=== PATIENT | female | born 1955 | race Caucasian/White ===

== ENCOUNTER 2024-12-05 10:54 | Observation (INO) ==
--- NOTE | 2024-12-05 11:37 | ED.PDOC ---
General ED Provider: Dr. SAKINA PORTER DO Chief Complaint: Abnormal Labs Stated Complaint: Urinary tract infection. Patient 69-year-old female recently admitted to [facility] in long-term care admitted date of 11/22/2024. Patient states at this time she was given a Robles catheter. She has had increasing dysuria and discomfort with her Robles catheter. She reports being found to have a urinary tract infection yesterday and started on antibiotics. She also had blood work which noted hypokalemia. She continued to feel poorly and therefore was sent to the emergency department. Patient was treated with ampicillin. She denies fevers no recent acetaminophen dosage. Patient is morbidly obese. She is extremely tearful related to her situation and hoping for rehab placement. Time Seen by Provider: 12/05/24 11:18 Information Source: Patient, Halfway and EMT Primary Care Provider: JUAN JOSÉ WOLFF MD Nursing and Triage Documentation Reviewed and Agree: Yes What is Opioid Naive?: *Opioid Naive implies the patient is not already taking opioids or not chronically receiving opioids on a daily basis. *PRN dosing is not "usually" associated with tolerance. *Patients are at higher risk of over-sedation and aspiration. What is Opioid Tolerant?: *Opioid Tolerance implies less than the expected response to an opioid. *Acquired tolerance is defined by the patient taking 60mg of oral morphine daily (or equianalgesic dose of another opioid) for 1 week or more. *Often associated with chronic pain. *May take more than usual dose to achieve desired pain control. 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 - Other postherpetic nervous system involvement (ICD-10) Family History Grandfather/Grandmother Tuberculosis Breast cancer, left Diabetes Social History Smoking and tobacco status: Never smoker Second hand smoke exposure: No Smoking risk assessment performed: No Alcohol intake: never Substance use type: does not use Maria Esther/jehovah's witness: [employer] [employer] [place] Special maria esther needs: No Agree to transfusion: Yes Adopted: No Caregiver/support person: No Foster care: No Household members: spouse and children Housing: house Marital status: M Lives independently: Yes Daycare: no daycare Number of children: 2 service: No penitentiary: No Current occupational status: employed History of recent travel: No Sexually active: No Current gender identity: female Seatbelt use: always Helmet use: No Drives intoxicated or rides with intoxicated long haul truck driver: No Water heater temperature set < 120 degrees: Yes Working smoke detector in home: Yes Fire extinguisher in home: Yes Carbon monoxide detector in home: Yes Surgical History History of cholecystectomy Z90.49 - Acquired absence of other specified parts of digestive tract (ICD- 10) History of section Z98.891 - History of uterine scar from previous surgery (ICD-10) History of breast biopsy several breast biopsies Z98.890 - Other specified postprocedural states (ICD-10) Female Reproductive History Menstrual Hx Hysterectomy: No Hx Tubal Ligation: No Date of menopause: 07/18/09 Physical Exam Physical Exam Appearance: Reports Obese Respiratory: Reports Airway patent and Breath sounds clear Cardiovascular: Reports RRR GI/: Reports Other (Robles catheter with large sediment); Denies Tender Musculoskeletal: Reports Limited strength Skin: Reports Warm and Dry Neurological: Reports Sensation intact, Motor intact and Alert Course Course 12/05/24 11:50 12/05/24 11:50 Orders, Labs, Meds: Lab Review 12/05/24 12/05/24 12/05/24 11:50 13:38 15:35 WBC 11.11 H RBC 3.93 L Hgb 11.7 L Hct 37.4 MCV 95.2 MCH 29.8 MCHC 31.3 L RDW Coeff of Marco 16.4 H Plt Count 352 Immature Gran % (Auto) 2.0 Neut % (Auto) 58.2 Lymph % (Auto) 22.7 [place] % (Auto) 8.4 Eos % (Auto) 7.8 H Baso % (Auto) 0.9 Neut # (Auto) 6.5 Lymph # (Auto) 2.5 [place] # (Auto) 0.9 Eos # (Auto) 0.9 H Baso # (Auto) 0.1 Immature Gran # (Auto) 0.2 Sodium 137.3 Potassium 2.84 L Chloride 95.5 L Carbon Dioxide 29.8 Anion Gap 14.84 BUN 20.2 H Creatinine 0.90 Estimated GFR (MDRD) 62.00 BUN/Creatinine Ratio 22.44 Glucose 131.4 H Lactic Acid 1.10 Calcium 8.62 Magnesium 1.82 Total Bilirubin 0.70 AST 29.0 ALT 17.5 Alkaline Phosphatase 161.0 H Total Protein 6.29 L Albumin 3.20 L Globulin 3.09 Albumin/Globulin Ratio 1.03 Procalcitonin 0.09 Urine Color Yellow Urine Clarity Slightly Urine pH 6.0 Ur Specific [place] >=1.030 Urine Protein 3+ H Urine Glucose (UA) Negative Urine Ketones Trace H Urine Blood 3+ H Urine Nitrite Positive H Urine Bilirubin 1+ H Urine Urobilinogen 0.2 Ur Leukocyte Esterase 1+ H Urine Microscopic RBC 20-30 Urine Microscopic WBC 5-10 Ur Squamous Epith Cells Not present Triple Phos Crystals 1+ Urine Bacteria 1+ Hyaline Casts 0-2 SARS CoV-2 RNA Rapid CHRISTY Negative Orders Category Date Time Status ADMIT OBSERVATION [PLACE PATIENT OBSERVATION] .TO ADMISSION 12/05/24 16:06 Active MEDSURG (MONITORED BED) TELEMETRY MONITORING TELE CARE 12/05/24 16:06 Active ED IV/MEDIPORT/POWERPORT .ONCE EMERGENCY 12/05/24 11:38 Active CBC W/ AUTO DIFF Stat LAB 12/05/24 11:50 Completed COMPREHENSIVE METABOLIC PANEL Stat LAB 12/05/24 11:50 Completed LACTIC ACID Stat LAB 12/05/24 11:50 Completed MAGNESIUM Stat LAB 12/05/24 11:50 Completed PROCALCITONIN Stat LAB 12/05/24 11:50 Completed SARS COV-2 RNA RAPID CHRISTY Stat LAB 12/05/24 15:35 Completed URINALYSIS C & S IF INDICATED Stat LAB 12/05/24 13:38 Completed URINE CULTURE Stat LAB 12/05/24 13:38 Received 0.9 % Sodium Chloride [Saline Flush] Meds 12/05/24 11:38 Active 1 syr IVF PRN PRN Potassium Chloride [Potassium Chloride 10 Meq/100 ml Meds 12/05/24 14:52 Discontinued Premix] 10 meq in 100 ml IV ONCE Sodium Chloride 0.9% [Sodium Chloride] 1,000 ml Meds 12/05/24 15:37 Active IV 100 mls/hr Medications Generic Name Dose Route Start Last Admin Trade Name Elias PRN Reason Stop Dose Admin Acetaminophen 650 mg 12/05/24 16:40 Acetaminophen 325 Mg Tablet PO Q4H PRN Mild Pain Hydrocodone Bitart/Acetaminophen 1 tab 12/05/24 21:00 Hydrocodone Bit/Acetaminophen 5/325 Mg Tablet PO BID PRN MODERATE PAIN Hydrocodone Bitart/Acetaminophen 1 tab 12/05/24 21:00 12/05/24 21:26 Hydrocodone Bit/Acetaminophen 5/325 Mg Tablet PO 1 tab BEDTIME MEÑO Administration Albuterol Sulfate 2 puff 12/05/24 20:20 Albuterol Sulfate 8 Gm Inhaler IH Q4-6H PRN Wheezing Budesonide/Formoterol Fumarate 2 puff 12/05/24 21:00 12/05/24 21:31 Budesonide/Formoterol Fumarate 160/4.5 Mcg Inhaler IH 2 puff BID MEÑO Administration Clonazepam 1 mg 12/06/24 09:00 Clonazepam 0.5 Mg Tablet PO QAM MEÑO Clonazepam 2 mg 12/05/24 21:00 12/05/24 21:34 Clonazepam 0.5 Mg Tablet PO 2 mg BEDTIME MEÑO Administration Collagenase 1 applic 12/05/24 20:30 12/05/24 21:33 Collagenase Clostridium Hist 30 Gm Oint TP 1 applic 1-2XD MEÑO Administration Furosemide 20 mg 12/06/24 06:30 Furosemide 20 Mg Tablet PO 0630,1700 MEÑO Sodium Chloride 1,000 mls @ 100 mls/hr 12/05/24 15:37 12/05/24 15:47 Sodium Chloride IV 12/06/24 01:36 100 mls/hr .Q10H ONE Administration Ampicillin Sodium 2 gm/ Sodium 100 mls @ 100 mls/hr 12/05/24 18:00 12/05/24 20:10 Chloride IV 12/08/24 17:59 100 mls/hr Q6HR MEÑO Administration Insulin Glargine 10 unit 12/05/24 21:00 12/05/24 21:56 Insulin Glargine,Hum.Rec.Anlog 100 Units/Ml SUBCUT Not Given BID MEÑO Levothyroxine Sodium 200 mcg 12/06/24 06:30 Levothyroxine Sodium 100 Mcg Tablet PO 0630 [facility] Levothyroxine Sodium 50 mcg 12/06/24 06:30 Levothyroxine Sodium 50 Mcg Tablet PO 0630 [facility] Miconazole Nitrate 1 applic 12/05/24 21:00 12/05/24 21:32 Miconazole Nitrate 28 Gm Cream TP 1 applic BID MEÑO Administration Multivitamins 1 tab 12/06/24 09:00 Multivitamin 1 Tab PO DAILY [facility] Non-Formulary Medication 100 mg 12/06/24 17:00 Fluvoxamine [Luvox Cr] PO QPM [facility] Non-Formulary Medication 150 mg 12/06/24 09:00 Fluvoxamine PO DAILY [facility] Ondansetron HCl 4 mg 12/05/24 20:20 Ondansetron Hcl 4 Mg Tab.Rapdis PO Q8H PRN Nausea / Vomiting Pantoprazole Sodium 40 mg 12/06/24 09:00 Pantoprazole Sodium 40 Mg Tablet.Dr PO DAILY [facility] Potassium Chloride 20 meq 12/06/24 07:30 Potassium Chloride 20 Meq Tab PO BIDWM2 [facility] Promethazine HCl 25 mg 12/05/24 20:20 12/05/24 21:34 Promethazine Hcl 25 Mg Tablet PO 25 mg TID PRN Administration Nausea / Vomiting Saccharomyces Boulardii 250 mg 12/05/24 21:00 12/05/24 21:34 Saccharomyces Boulardii 250 Mg Capsule PO 250 mg BID MEÑO Administration Sodium Chloride 1 syr 12/05/24 11:38 0.9% Sodium Chloride 10 Ml Disp.Syrin IVF PRN PRN To flush IV Sucralfate 1 gm 12/05/24 21:00 12/05/24 21:33 Sucralfate Susp 1 Gm/10 Ml Cup PO 1 gm ACHS2 [facility] Administration Tiotropium [place] 1 cap 12/06/24 09:00 Tiotropium [place] 18 Mcg Cap.W.Dev IH DAILY [facility] Tizanidine HCl 4 mg 12/05/24 20:20 12/05/24 21:33 Tizanidine Hcl 4 Mg Tablet PO 4 mg Q8H PRN Administration Spasms Discontinued Medications Generic Name Dose Route Start Last Admin Trade Name Freq PRN Reason Stop Dose Admin Potassium Chloride 10 meq in 100 mls @ 100 mls/hr 12/05/24 14:52 12/05/24 15:47 Potassium Chloride 10 Meq/100 Ml Premix IV 12/05/24 15:51 100 mls/hr ONCE ONE Administration Potassium Chloride 20 meq in 100 mls @ 50 mls/hr 12/05/24 16:36 12/05/24 20:23 Potassium Chloride 20 Meq/100 Ml Premix IV 12/05/24 18:35 Not Given ONCE ONE Potassium Chloride 20 meq in 100 mls @ 50 mls/hr 12/05/24 21:00 12/05/24 21:41 Potassium Chloride 20 Meq/100 Ml Premix IV 12/05/24 22:59 50 mls/hr ONCE ONE Administration Non-Formulary Medication 100 mg 12/05/24 21:00 12/05/24 21:27 Fluvoxamine [Luvox Cr] PO Not Given TID MEÑO Non-Formulary Medication 100 mg 12/05/24 21:24 Fluvoxamine [Luvox Cr] PO TID MEÑO Vital Signs: Temp Pulse Resp BP Pulse Ox 12/05/24 11:00 98.0 F 104 H 20 144/88 H 95 Discharge Plan Discharge Patient Disposition: PLACED OBSERVATION Discharge Problem: Acute hypokalemia, Bacterial UTI Did you review [place] [employer] for ALL controlled substances?: Not Applicable ED Provider: SAKINA PORTER Condition: Fair Physician Progress Note: Concern for systemic infection, complicated UTI, bacteremia, sepsis. Overall patient is well-appearing do not suspect systemic infection. Is currently being treated for complicated UTI. Patient 69-year-old female seen and evaluated in emergency department. Patient overall very tearful and concerned about her current living situation. She feels she has been less ambulatory since going to [facility]. Robles catheter was originally placed upon her arrival on 11 22. On evaluation there is large amounts of sediment and being treated for a UTI. Robles catheter was replaced in the emergency department. Patient does have hypokalemia which has been improving per lab evaluation today. She has been on oral supplementation however due to her recent nausea and discomfort concerned that she will no longer be able to continue with oral medication. She was given IV potassium in the emergency department. Urine analysis does show evidence of infection. Will continue antibiotic treatment spoke with hospitalist service agreement for observation for hypokalemia and continued management of urinary infection.
[2024-12-05 11:53] LABS: BASOPHILS # (AUTO) 0.1 K/uL (0-0.2); BASOPHILS % (AUTO) 0.9 % (0.0-3.0); EOSINOPHILS # (AUTO) 0.9 K/ul (0.0-0.7); EOSINOPHILS % (AUTO) 7.8 % (0.0-7.0); HEMATOCRIT 37.4 % (37.0-47.0); HEMOGLOBIN 11.7 g/dl (12.0-16.0); IMMATURE GRANULOCYTE # (AUTO) 0.2 (0.0-1.0); LYMPHOCYTES # (AUTO) 2.5 K/uL (0.60-3.4); LYMPHOCYTES % (AUTO) 22.7 (10.0-50.0); MEAN CORPUSCULAR HEMOGLOBIN 29.8 pg (27.0-31.0); MEAN CORPUSCULAR HGB CONC 31.3 (31.8-35.4); MEAN CORPUSCULAR VOLUME 95.2 fl (81.0-99.0); MONOCYTES # (AUTO) 0.9 K/uL (0.4-2.0); MONOCYTES % (AUTO) 8.4 (0-10); NEUTROPHILS # (AUTO) 6.5 K/ul (2.0-6.9); NEUTROPHILS % (AUTO) 58.2 % (42.2-75.2); PLATELET COUNT 352 10^3/uL (140-440); RDW COEFFICIENT OF VARIATION 16.4 % (11.6-14.8); RED BLOOD COUNT 3.93 10^6/ul (4.20-5.40); WHITE BLOOD COUNT 11.11 K/ul (4.6-10.2)
[2024-12-05 12:07] LABS: ALANINE AMINOTRANSFERASE 17.5 U/L (0-35); ALBUMIN 3.2 g/dL (3.5-5.0); BILIRUBIN,TOTAL 0.7 mg/dL (0.2-1.3); BLOOD UREA NITROGEN 20.2 mg/dL (7-17); CALCIUM 8.62 mg/dL (8.4-10.2); CARBON DIOXIDE 29.8 mmol/L (22-30.0); CHLORIDE 95.5 mmol/L (98-107); CREATININE 0.9 mg/dL (0.60-1.30); GLUCOSE 131.4 mg/dL (74-106); MAGNESIUM 1.82 mg/dL (1.6-2.3); POTASSIUM 2.84 mmol/L (3.5-5.1); SODIUM 137.3 mmol/L (134.5-145); TOTAL PROTEIN 6.29 g/dL (6.3-8.2)
[2024-12-05 13:47] LABS: BILIRUBIN,URINE 1+ (NEGATIVE); CLARITY,URINE Slightly (CLEAR); COLOR,URINE Yellow (YELLOW); GLUCOSE, URINE (UA) Negative (NEGATIVE); KETONES,URINE Trace (NEGATIVE); LEUKOCYTE ESTERASE ,URINE 1+ (NEGATIVE); NITRITE,URINE Positive (NEGATIVE); PROTEIN,URINE 3+ (NEGATIVE); URINE, BLOOD 3+ (NEGATIVE); UROBILINOGEN,URINE 0.2 (0.2)
[2024-12-05 13:49] LABS: SQUAMOUS EPITHELIAL CELL,UR NOT PRESENT (0-5)
[2024-12-05 13:53] LABS: BACTERIA,URINE 1+ (NOT PRESENT); HYALINE CASTS, URINE 0-2 (NOT PRESENT); TRIPLE PHOSPHATE CRYSTAL,UR 1+ (NOT PRESENT); URINE RBC, MICROSCOPIC 20-30 (0-2)
[2024-12-05] MEDS: SODIUM CHLORIDE 1,000 ML IV ONE (15:47)
[2024-12-05] MEDS: POTASSIUM CHLORIDE 10 MEQ/100 ML PREMIX 10 MEQ/100 ML BAG IV ONE (15:47)
[2024-12-05 15:49] LABS: SARS COV-2 RNA RAPID NAAT NEGATIVE (NEGATIVE)
--- NOTE | 2024-12-05 17:10 | PCM ---
Date of Service Date Seen by Provider: 12/05/24 Time Seen by Provider: 17:00 Admit Day/Time Admission Date: 12/05/24 Admission Time: 15:30 Reason for Admission Chief Complaint: UTI, [facility] Provider Hospital Provider: ZOFIA DEVLIN, [facility] Primary Care Physician Primary Care Physician: JUAN JOSÉ RAMOS MD History of Present Illness History of Present Illness: 69-year-old female with past medical history of C. difficile, chronic vomiting and diarrhea, chronic hypokalemia, chronic UTIs, diabetes type 2, and hypertension presented to the ER for low potassium. Basic lab work was completed at local SNF and showed potassium of 2.5. Patient does not have any EKG changes or symptoms. Urinalysis was also collected and showed UTI. Final culture report showed enterococcus. She has been receiving ampicillin at [facility] where she is residing at this time. Patient was recently at [facility] for metabolic encephalopathy due to medications. She was monitored for cellulitis to the right thigh but was not treated with antibiotics. Culture at [facility] showed Pseudomonas. Patient has not been treated with antibiotics since then. Reports that wound now has green- tinged drainage. Has follow-up with Dr. Agustin in the near future. ER provider repeated labs and potassium was found to be 2.8. Given patient's history of repeated potassium replacement admitted to [facility] observation for hypokalemia. Patient had also complained of discomfort of urinary catheter and this was changed in the ER. Case Discussed With Case Discussed With: Patient's case was discussed with the ER Physicians, Dr. Arevalo. 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 - Other postherpetic nervous system involvement (ICD-10) Surgical History History of cholecystectomy Z90.49 - Acquired absence of other specified parts of digestive tract (ICD- 10) History of section Z98.891 - History of uterine scar from previous surgery (ICD-10) History of breast biopsy several breast biopsies Z98.890 - Other specified postprocedural states (ICD-10) Family History Grandfather/Grandmother Tuberculosis Breast cancer, left Diabetes Social History Smoking and tobacco status: Never smoker Second hand smoke exposure: No Smoking risk assessment performed: No Alcohol intake: never Substance use type: does not use Maria Esther/sikhism: [employer] Special maria esther needs: No Agree to transfusion: Yes Adopted: No Caregiver/support person: No Foster care: No Household members: spouse and children Housing: house Marital status: M Lives independently: Yes Daycare: no daycare Number of children: 2 service: No FPC: No Current occupational status: employed History of recent travel: No Sexually active: No Current gender identity: female Seatbelt use: always Helmet use: No 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 Water heater temperature set < 120 degrees: Yes Working smoke detector in home: Yes Fire extinguisher in home: Yes Carbon monoxide detector in home: Yes Allergies Allergies Allergy/AdvReac Type Severity Reaction Status Date / Time prochlorperazine edisylate Allergy Severe , Verified 12/05/24 12:01 (From KAYAKazine) nightmares prochlorperazine maleate Allergy Severe , Verified 12/05/24 12:01 (From KAYAKazine) nightmares codeine Allergy Mild sick to Verified 12/05/24 12:01 stomach phentermine AdvReac Severe headache Verified 12/05/24 12:01 metformin AdvReac Unknown Diarrhea Verified 12/05/24 12:01 moxifloxacin (From Avelox) AdvReac Unknown Vomiting Verified 12/05/24 12:01 rosuvastatin (From Crestor) AdvReac Unknown muscle Verified 12/05/24 12:01 aches aspartame AdvReac Verified 12/05/24 12:01 nitrofurantoin (From AdvReac Verified 12/05/24 12:01 Macrobid) phenylalanine AdvReac Verified 12/05/24 12:01 Current Medications Home Medications Acetaminophen (Acetaminophen 325 Mg Tablet) 650 mg PO Q4H PRN PRN Reason: Mild Pain Sodium Chloride (Sodium Chloride) 1,000 mls @ 100 mls/hr IV .Q10H ONE Stop: 12/06/24 01:36 Last Admin: 12/05/24 15:47 Dose: 100 mls/hr Potassium Chloride (Potassium Chloride 20 Meq/100 Ml Premix) 20 meq in 100 mls @ 50 mls/hr IV ONCE ONE Stop: 12/05/24 18:35 Potassium Chloride (Potassium Chloride 20 Meq/100 Ml Premix) 20 meq in 100 mls @ 50 mls/hr IV ONCE ONE Stop: 12/05/24 22:59 Ampicillin Sodium 2 gm/ Sodium (Chloride) 100 mls @ 100 mls/hr IV Q6HR MEÑO Stop: 12/08/24 17:59 Sodium Chloride (0.9% Sodium Chloride 10 Ml Disp.Syrin) 1 syr IVF PRN PRN PRN Reason: To flush IV accu-check test strips 09/06/22 [History Confirmed 12/05/24] chlordiazepoxide-clidinium 5 mg-2.5 mg capsule (Librax (with clidinium)) 1 cap PO ONCE PRN anxiety 09/06/22 [History Confirmed 12/05/24] fluvoxamine 100 mg capsule,extended release 24 hr (Luvox CR) 100 mg PO TID 09/06/22 [History Confirmed 12/05/24] levothyroxine 200 mcg tablet (Synthroid) 200 mcg PO QDAY #30 tabs 06/13/23 [Rx Confirmed 12/05/24] pen needle, diabetic 32 gauge x 5/32" (Pentips Pen Needle) #100 blisters 01/02/24 [Rx Confirmed 12/05/24] albuterol sulfate 90 mcg/actuation aerosol inhaler 2 inh inhalation Q4-6H PRN shortness of breath or wheezing #8.5 grams 01/12/24 [Rx Confirmed 12/05/24] budesonide 160 mcg-glycopyr 9 mcg-formot 4.8 mcg/actuation HFA inhaler (Breztri Aerosphere) 2 inh inhalation BID #10.7 grams 01/12/24 [Rx Confirmed 12/05/24] levothyroxine 50 mcg tablet (Synthroid) 50 mcg PO QDAY #30 tabs 01/12/24 [Rx Confirmed 12/05/24] blood sugar diagnostic (Accu-Chek Guide test strips) #100 strips 01/07/25 [Rx Confirmed 12/05/24] olmesartan 40 mg tablet 40 mg PO DAILY #90 tabs 07/25/24 [Rx Confirmed 12/05/24] nebivolol 10 mg tablet 5 mg PO BID 09/21/24 [History Confirmed 12/05/24] aripiprazole 2 mg tablet (Abilify) 2 mg PO DAILY #30 tabs 10/03/24 [Rx Confirmed 12/05/24] promethazine 25 mg tablet 25 mg PO TID PRN nausea and vomiting #30 tabs 10/15/24 [Rx Confirmed 12/05/24] needle (disp) 22 G 22 gauge x 1 1/" #2 ea 10/17/24 [Rx Confirmed 12/05/24] syringe (disposable) 3 mL #2 ea 10/17/24 [Rx Confirmed 12/05/24] ondansetron 4 mg disintegrating tablet 4 mg PO Q8H PRN nausea and vomiting #30 tabs 10/24/24 [Rx Confirmed 12/05/24] clonazepam 0.5 mg tablet 1 mg (2 x 0.5 mg) PO QAM #30 tabs 11/06/24 [Rx Confirmed 12/05/24] clonazepam 0.5 mg tablet 2 mg (4 x 0.5 mg) PO BEDTIME #30 tabs 11/06/24 [Rx Confirmed 12/05/24] sucralfate 100 mg/mL oral suspension 1 g (10 mL) PO ACHS2 #500 mL 11/06/24 [Rx Confirmed 12/05/24] tizanidine 4 mg tablet (Zanaflex) 4 mg PO Q8H PRN muscle spasticity #30 tabs 12/03/24 [Rx Confirmed 12/05/24] acetaminophen 325 mg capsule 650 mg PO Q4H PRN pain 12/05/24 [History Confirmed 12/05/24] ampicillin 500 mg capsule 1 g PO DAILY 12/05/24 [History Confirmed 12/05/24] collagenase clostridium histo. 250 unit/gram topical ointment (Santyl) 1 applic topical 1-2XD 12/05/24 [History Confirmed 12/05/24] diclofenac sodium 1 % topical gel 2 g topical TID PRN pain 12/05/24 [History Confirmed 12/05/24] furosemide 20 mg tablet 20 mg PO BID 12/05/24 [History Confirmed 12/05/24] hydrocodone 5 mg-acetaminophen 325 mg tablet 1 tab PO TID 12/05/24 [History Confirmed 12/05/24] insulin glargine 100 unit/mL subcutaneous solution 10 unit subcut BID 12/05/24 [History Confirmed 12/05/24] lidocaine 4 % topical patch (Lidocare) 2 patch topical DAILY 12/05/24 [History Confirmed 12/05/24] miconazole nitrate 2 % topical powder (Antifungal (miconazole)) 1 applic topical BID 12/05/24 [History Confirmed 12/05/24] multivitamin (Daily Multi-Vitamin tablet) 1 tab PO DAILY 12/05/24 [History Confirmed 12/05/24] pantoprazole 40 mg tablet,delayed release 40 mg PO DAILY 12/05/24 [History Confirmed 12/05/24] Opioid Naive vs. Tolerant Does Patient Take Opioids?: Yes Is Patient Opioid Naive?: No What is Opioid Naive?: *Opioid Naive implies the patient is not already taking opioids or not chronically receiving opioids on a daily basis. *PRN dosing is not "usually" associated with tolerance. *Patients are at higher risk of over-sedation and aspiration. Is Patient Opioid Tolerant?: No What is Opioid Tolerant?: *Opioid Tolerance implies less than the expected response to an opioid. *Acquired tolerance is defined by the patient taking 60mg of oral morphine daily (or equianalgesic dose of another opioid) for 1 week or more. *Often associated with chronic pain. *May take more than usual dose to achieve desired pain control. Review of Systems Constitutional: Reports No symptoms Head: Reports Normocephalic Eyes: Reports No symptoms Ears: Reports No symptoms Nose: Reports No symptoms Mouth: Reports No symptoms Throat: Reports No symptoms Cardiovascular: Reports No symptoms Respiratory: Reports No symptoms Gastrointestinal: Reports Nausea Genitourinary: Reports Dysuria Musculoskeletal: Reports No symptoms Endocrine: Reports No symptoms Hematology: Reports No symptoms Immunology: Reports No symptoms Neurological: Reports No symptoms Psychiatric: Reports No symptoms Physical examination Most Recent Vital Signs: Most Recent Vital Signs Temperature 98.0 F 12/05/24 11:00 Temperature Source Oral 12/05/24 11:00 Pulse Rate 104 H 12/05/24 11:00 Respiratory Rate 20 12/05/24 11:00 Blood Pressure 144/88 H 12/05/24 11:00 O2 Sat by Pulse Oximetry 95 12/05/24 11:00 Height 5 ft 8 in 12/05/24 11:00 Weight 158.9 kg 12/05/24 11:00 Telemetry Heart Rate 74 11/06/24 07:00 Appearance: Positive No Apparent Distress, Alert and Oriented x3 and Obese Skin: Positive Warm, Good Turgor and Other (approx 1 cm erythematous area to R thigh with purulent drainage) HEENT: Positive Normocephalic and PERRLA Neck: Positive Supple and Midline Trachea Chest/Lungs: Positive Symmetrical With Equal Breath Sounds, Clear to Auscultation Bilaterally and Good Air Movement all 4 Lung Goncalves; Negative Rales, Rhonci or Wheezes Heart: Positive RRR and Pulses Normal; Negative Irregular Rhythm, Tachycardia or Bracycardia GI/: Positive Soft, Nontender, Bowel Sounds Normal, No Distention and No Organomegaly Musculoskeletal: Positive Not Examined Extremities: Positive Edema (chronic nonpitting), Intact Peripheral Pulses, Stable Joints Without Laxity and Good ROM in All Joints Neurological: Positive Sensation Intact, Motor intact, Reflexes Intact, Alert and Oriented Labs This Visit Labs This Visit: Labs This Visit 12/05/24 12/05/24 12/05/24 11:50 13:38 15:35 WBC 11.11 H RBC 3.93 L Hgb 11.7 L Hct 37.4 MCV 95.2 MCH 29.8 MCHC 31.3 L RDW Coeff of Marco 16.4 H Plt Count 352 Immature Gran % (Auto) 2.0 Neut % (Auto) 58.2 Lymph % (Auto) 22.7 [place] % (Auto) 8.4 Eos % (Auto) 7.8 H Baso % (Auto) 0.9 Neut # (Auto) 6.5 Lymph # (Auto) 2.5 [place] # (Auto) 0.9 Eos # (Auto) 0.9 H Baso # (Auto) 0.1 Immature Gran # (Auto) 0.2 Sodium 137.3 Potassium 2.84 L Chloride 95.5 L Carbon Dioxide 29.8 Anion Gap 14.84 BUN 20.2 H Creatinine 0.90 Estimated GFR (MDRD) 62.00 BUN/Creatinine Ratio 22.44 Glucose 131.4 H Lactic Acid 1.10 Calcium 8.62 Magnesium 1.82 Total Bilirubin 0.70 AST 29.0 ALT 17.5 Alkaline Phosphatase 161.0 H Total Protein 6.29 L Albumin 3.20 L Globulin 3.09 Albumin/Globulin Ratio 1.03 Procalcitonin 0.09 Urine Color Yellow Urine Clarity Slightly Urine pH 6.0 Ur Specific Ida >=1.030 Urine Protein 3+ H Urine Glucose (UA) Negative Urine Ketones Trace H Urine Blood 3+ H Urine Nitrite Positive H Urine Bilirubin 1+ H Urine Urobilinogen 0.2 Ur Leukocyte Esterase 1+ H Urine Microscopic RBC 20-30 Urine Microscopic WBC 5-10 Ur Squamous Epith Cells Not present Triple Phos Crystals 1+ Urine Bacteria 1+ Hyaline Casts 0-2 SARS CoV-2 RNA Rapid CHRISTY Negative Review Statement Review Statement: I have independently reviewed and interpreted the labs/EKGs/imaging that were ordered by the ER provider. I have reviewed all outside records that are available currently in our EMR including imaging/notes/labs from previous visits. Plan Plan: 1. Acute on Chronic Hypokalemia - replacement ordered, telemetry, repeat bmp after completion of replacement IV 2. Purulent wound to R thigh - wound culture ordered, no fever or white count at this time 3. UTI d/t enterococcus - continue ampicillin 4. Hypertension - chronic, continue home medications 5. DM2 - chronic, accuchecks qid with ssi, continue home medications DVT Prophylaxis: Chronically bed bound Time Spent: Greater than 80 minutes spent with patient, 50% of the time spent with this patient was devoted to counseling and coordination of care. [facility]annin minutes spent discussing advance care planning. Disposition: Admit to: Med/Surg Observation Discussed Plan of Care with Dr. Allison Ramos. Patient immediately requesting swingbed as soon as provider enters room. Discussed that patient is at baseline level of function and at this time it is going to take longer than the swingbed program allows for patient to return to safe level of function to return home. Daughter and Sister at bedside also in agreement and telling patient that returning to [facility] is the only option for her at this time due to their inability to care for her at home any longer. Medications Medication Orders: Medications Ordered Category Date Time Status 0.9 % Sodium Chloride [Saline Flush] Meds 12/05/24 11:38 Active 1 syr IVF PRN PRN Acetaminophen [Tylenol] Meds 12/05/24 16:40 Active 650 mg PO Q4H PRN Ampicillin Sodium 2 gm Meds 12/05/24 18:00 Active 0.9 % Sodium Chloride [Sodium Chloride 100Ml] 100 ml IV Q6HR Potassium Chloride [Potassium Chloride 20 Meq/100 ml Meds 12/05/24 16:36 Active Premix] 20 meq in 100 ml IV ONCE Potassium Chloride [Potassium Chloride 20 Meq/100 ml Meds 12/05/24 21:00 Active Premix] 20 meq in 100 ml IV ONCE Sodium Chloride 0.9% [Sodium Chloride] 1,000 ml Meds 12/05/24 15:37 Active IV 100 mls/hr
[2024-12-05 17:23] VITALS: BMI 51.9
[2024-12-05] MEDS: SODIUM CHLORIDE IV SCH (20:10)
[2024-12-05] MEDS: AMPICILLIN SODIUM IV SCH (20:10)
[2024-12-05] MEDS ORDERED: VENTOLIN HFA IH PRN (20:20)
[2024-12-05] MEDS: POTASSIUM CHLORIDE 20 MEQ/100 ML PREMIX 20 MEQ/100 ML BAG IV ONE ×2 (20:23→21:41)
[2024-12-05] MEDS ORDERED: FLUVOXAMINE 100 MG PO SCH (21:24)
[2024-12-05] MEDS: NORCO 5-325 PO SCH (21:26)
[2024-12-05] MEDS: FLUVOXAMINE 100 MG PO SCH (21:27)
[2024-12-05] MEDS: SYMBICORT 160-4.5 MCG INHALER IH SCH (21:31)
[2024-12-05] MEDS: MICATIN TP SCH (21:32)
[2024-12-05] MEDS: CARAFATE PO SCH (21:33)
[2024-12-05] MEDS: SANTYL TP SCH (21:33)
[2024-12-05] MEDS: ZANAFLEX PO PRN (21:33)
[2024-12-05] MEDS: KLONOPIN PO SCH (21:34)
[2024-12-05] MEDS: PHENERGAN TAB PO PRN (21:34)
[2024-12-05] MEDS: FLORASTOR PO SCH (21:34)
[2024-12-05] MEDS: LANTUS SUBCUT SCH (21:56)
[2024-12-06] MEDS: NON-FORMULARY MEDICATION (Fluvoxamine 100 MG) PO SCH (01:28)
[2024-12-06 05:30] LABS: BASOPHILS # (AUTO) 0.1 K/uL (0-0.2); BASOPHILS % (AUTO) 0.9 % (0.0-3.0); EOSINOPHILS # (AUTO) 0.7 K/ul (0.0-0.7); EOSINOPHILS % (AUTO) 6.9 % (0.0-7.0); HEMATOCRIT 33.2 % (37.0-47.0); HEMOGLOBIN 10.6 g/dl (12.0-16.0); IMMATURE GRANULOCYTE # (AUTO) 0.3 (0.0-1.0); IMMATURE GRANULOCYTE % (AUTO) 3.1 % (0.0-5.0); LYMPHOCYTES # (AUTO) 2.2 K/uL (0.60-3.4); LYMPHOCYTES % (AUTO) 22.3 (10.0-50.0); MEAN CORPUSCULAR HEMOGLOBIN 30.4 pg (27.0-31.0); MEAN CORPUSCULAR HGB CONC 31.9 (31.8-35.4); MEAN CORPUSCULAR VOLUME 95.1 fl (81.0-99.0); MONOCYTES # (AUTO) 0.9 K/uL (0.4-2.0); MONOCYTES % (AUTO) 9.1 (0-10); NEUTROPHILS # (AUTO) 5.7 K/ul (2.0-6.9); NEUTROPHILS % (AUTO) 57.7 % (42.2-75.2); PLATELET COUNT 323 10^3/uL (140-440); RDW COEFFICIENT OF VARIATION 16.2 % (11.6-14.8); RED BLOOD COUNT 3.49 10^6/ul (4.20-5.40); WHITE BLOOD COUNT 9.89 K/ul (4.6-10.2)
[2024-12-06] MEDS: SYNTHROID PO SCH ×2 (05:41)
[2024-12-06] MEDS: LASIX TAB PO SCH (05:41)
[2024-12-06 05:43] LABS: ALANINE AMINOTRANSFERASE 15.4 U/L (0-35); ALBUMIN 2.72 g/dL (3.5-5.0); ALKALINE PHOSPHATASE 128.3 U/L (53-141); ASPARTATE AMINO TRANSFERASE 25.7 U/L (14-36); BILIRUBIN,TOTAL 0.53 mg/dL (0.2-1.3); BLOOD UREA NITROGEN 16.8 mg/dL (7-17); CALCIUM 8.11 mg/dL (8.4-10.2); CARBON DIOXIDE 31.6 mmol/L (22-30.0); CHLORIDE 97.5 mmol/L (98-107); CREATININE 0.81 mg/dL (0.60-1.30); GLUCOSE 127.5 mg/dL (74-106); TOTAL PROTEIN 5.48 g/dL (6.3-8.2)
[2024-12-06 05:46] LABS: POTASSIUM 2.74 mmol/L (3.5-5.1)
[2024-12-06] MEDS: K-DUR PO STA (06:43)
[2024-12-06] MEDS: POTASSIUM CHLORIDE 20 MEQ/100 ML PREMIX 40 MEQ/200 ML BAG IV ONE (06:44)
[2024-12-06] MEDS: KLONOPIN PO SCH (08:08)
[2024-12-06] MEDS: SPIRIVA IH SCH (08:08)
[2024-12-06] MEDS: FLUVOXAMINE 150 MG PO SCH (08:09)
[2024-12-06] MEDS: K-DUR PO SCH (08:09)
[2024-12-06] MEDS: MULTIVITAMIN TABLET PO SCH (08:09)
[2024-12-06] MEDS: PROTONIX PO SCH (08:09)
[2024-12-06] MEDS ORDERED: FLUVOXAMINE 150 MG PO SCH (09:00)
[2024-12-06] MEDS ORDERED: UNASYN 1.5 GM in SODIUM CHLORIDE 50 ML IV SCH (09:00)
[2024-12-06] MEDS: TYLENOL PO PRN (09:24)
[2024-12-06] MEDS ORDERED: BYSTOLIC PO PRN (11:43)
[2024-12-06] MEDS: BYSTOLIC PO PRN (12:14)
[2024-12-06] MEDS: ZOFRAN ODT PO PRN (12:23)
[2024-12-06] MEDS: NORCO 5-325 PO PRN (12:23)
[2024-12-06 14:14] LABS: BLOOD UREA NITROGEN 15.1 mg/dL (7-17); CALCIUM 8.13 mg/dL (8.4-10.2); CARBON DIOXIDE 28.6 mmol/L (22-30.0); CHLORIDE 98.8 mmol/L (98-107); CREATININE 0.76 mg/dL (0.60-1.30); POTASSIUM 3.43 mmol/L (3.5-5.1); SODIUM 135.4 mmol/L (134.5-145)
--- NOTE | 2024-12-06 14:27 | DCSUM ---
Admission Date Admission Date: 12/05/24 Discharge Date Discharge Date: 12/06/24 Admission Diagnosis Admission Diagnosis: 1. Acute on Chronic Hypokalemia 2. Purulent wound to R thigh 3. UTI d/t enterococcus 4. Hypertension 5. DM2 Discharge Diagnosis Discharge Diagnosis: 1. Acute on Chronic Hypokalemia - Resolved, rx sent for daily supplementation 2. Purulent wound to R thigh - wound culture pending, will contact SNF if need for different antibiotics than current regimen for UTI 3. UTI d/t enterococcus - Sent with rx for amoxil to complete course 4. Hypertension - chronic, stable 5. DM2 - chronic, stable Hospital Provider Hospital Provider: ZOFIA DEVLIN, [facility] Primary Care Physician Primary Care Physician: JUAN JOSÉ WOLFF MD Summary of History and Physical Summary of History and Physical: 69-year-old female with past medical history of C. difficile, chronic vomiting and diarrhea, chronic hypokalemia, chronic UTIs, diabetes type 2, and hypertension presented to the ER for low potassium. Basic lab work was completed at local SNF and showed potassium of 2.5. Patient does not have any EKG changes or symptoms. Urinalysis was also collected and showed UTI. Final culture report showed enterococcus. She has been receiving ampicillin at [facility] where she is residing at this time. Patient was recently at [facility] for metabolic encephalopathy due to medications. She was monitored for cellulitis to the right thigh but was not treated with antibiotics. Culture at [facility] showed Pseudomonas. Patient has not been treated with antibiotics since then. Reports that wound now has green- tinged drainage. Has follow-up with Dr. Agustin in the near future. ER provider repeated labs and potassium was found to be 2.8. Given patient's history of repeated potassium replacement admitted to [facility] observation for hypokalemia. Patient had also complained of discomfort of urinary catheter and this was changed in the ER. Hospital Course Subjective: During stay, patient was given multiple doses of potassium replacement. This am K was 2.7 (slightly lower than initial). Additional replacement given and corrected to 3.4 at 1400. Additional oral dose given prior to discharge. Restarted daily replacement with meals as previously prescribed. All other labs stable. Awaiting wound culture to R thigh. Will contact SNF if need for different antibiotics than current regimen. Has been receiving ampicillin for UTI d/t enterococcus. Dc with amoxil 875 mg twice a day for 4 days - start tomorrow. Robles catheter changed in ER on admission. Continue yogurt and probiotics. Follow-up with PCP in 1 week. Appearance: No Apparent Distress and Alert HEENT: MMM, Supple and No JVD CVS: No Murmur Abdomen: Soft, Non-Tender and No Distention Respiratory: No Dyspnea Extremities: No Edema Vital Signs: Most Recent Vital Signs Temperature 97.7 F 12/06/24 10:00 Temperature Source Tympanic 12/06/24 10:00 Temperature Source Oral 12/05/24 11:00 Pulse Rate 108 H 12/06/24 10:00 Respiratory Rate 22 H 12/06/24 10:00 Blood Pressure 177/122 H 12/06/24 10:00 Blood Pressure Mean 140 12/06/24 10:00 Blood Pressure Right Arm 185/110 12/05/24 16:57 Blood Pressure Location Right Arm 12/06/24 10:00 Blood Pressure Position Supine 12/06/24 10:00 O2 Sat by Pulse Oximetry 96 12/06/24 10:00 Oxygen Delivery Method Room Air 12/06/24 10:00 Height 5 ft 8 in 12/06/24 10:49 Weight 154.8 kg 12/06/24 10:49 Telemetry Type Remote Telemetry 12/06/24 01:00 Telemetry Monitoring Continues 12/06/24 01:00 Telemetry Heart Rate 82 12/06/24 01:00 EKG IA Interval 0.17 12/06/24 01:00 EKG QRS Interval 0.05 L 12/06/24 01:00 Telemetry Strip Reading SR 12/06/24 01:00 Lab Results Last 24 Hours: 12/06/24 12/06/24 12/05/24 13:57 05:19 15:35 WBC 9.89 RBC 3.49 L Hgb 10.6 L Hct 33.2 L MCV 95.1 MCH 30.4 MCHC 31.9 RDW Coeff of Marco 16.2 H Plt Count 323 Immature Gran % (Auto) 3.1 Neut % (Auto) 57.7 Lymph % (Auto) 22.3 [place] % (Auto) 9.1 Eos % (Auto) 6.9 Baso % (Auto) 0.9 Neut # (Auto) 5.7 Lymph # (Auto) 2.2 [place] # (Auto) 0.9 Eos # (Auto) 0.7 Baso # (Auto) 0.1 Immature Gran # (Auto) 0.3 Sodium 135.4 137.0 Potassium 3.43 L 2.74 L* Chloride 98.8 97.5 L Carbon Dioxide 28.6 31.6 H Anion Gap 11.43 10.64 BUN 15.1 16.8 Creatinine 0.76 0.81 Estimated GFR (MDRD) 75.00 70.00 BUN/Creatinine Ratio 19.86 20.74 Glucose 125.0 H 127.5 H Calcium 8.13 L 8.11 L Total Bilirubin 0.53 AST 25.7 ALT 15.4 Alkaline Phosphatase 128.3 D Total Protein 5.48 L Albumin 2.72 L Globulin 2.76 Albumin/Globulin Ratio 0.98 SARS CoV-2 RNA Rapid CHRISTY Negative Discharge Instructions Discharge Planning: Discharge Planning > 40 minutes If patient is discharged with left ventricular systolic dysfunction: no Discharged with a beta lilian? [] If no, why not? [] Discharged with an jori/arb? [] If no, why not? [] Diagnosis: Hypokalemia, UTI Diet: Diabetic Activity: as tolerated Medications: * Amoxicillin twice a day x 4 days * Potassium 20 mEq twice a day with meals Follow-up with PCP next week Discharge Medications: Medications at Discharge (Home Meds & RX) accu-check test strips 09/06/22 levothyroxine 200 mcg tablet (Synthroid) 200 mcg PO QDAY #30 tabs 06/13/23 pen needle, diabetic 32 gauge x 32" (Pentips Pen Needle) #100 blisters 01/02/24 albuterol sulfate 90 mcg/actuation aerosol inhaler 2 inh inhalation Q4-6H PRN shortness of breath or wheezing #8.5 grams 01/12/24 budesonide 160 mcg-glycopyr 9 mcg-formot 4.8 mcg/actuation HFA inhaler (Breztri Aerosphere) 2 inh inhalation BID #10.7 grams 01/12/24 levothyroxine 50 mcg tablet (Synthroid) 50 mcg PO QDAY #30 tabs 01/12/24 blood sugar diagnostic (Accu-Chek Guide test strips) #100 strips 07/24/24 promethazine 25 mg tablet 25 mg PO TID PRN nausea and vomiting #30 tabs 10/15/24 needle (disp) 22 G 22 gauge x 1 1/2" #2 ea 10/17/24 syringe (disposable) 3 mL #2 ea 10/17/24 ondansetron 4 mg disintegrating tablet 4 mg PO Q8H PRN nausea and vomiting #30 tabs 10/24/24 clonazepam 0.5 mg tablet 1 mg (2 x 0.5 mg) PO QAM #30 tabs 11/06/24 clonazepam 0.5 mg tablet 2 mg (4 x 0.5 mg) PO BEDTIME #30 tabs 11/06/24 sucralfate 100 mg/mL oral suspension 1 g (10 mL) PO ACHS2 #500 mL 11/06/24 tizanidine 4 mg tablet (Zanaflex) 4 mg PO Q8H PRN muscle spasticity #30 tabs 12/03/24 Saccharomyces boulardii 250 mg capsule (Daily Probiotic (S. boulardii)) 250 mg PO BID 12/05/24 acetaminophen 325 mg capsule 650 mg PO Q4H PRN pain 12/05/24 collagenase clostridium histo. 250 unit/gram topical ointment (Santyl) 1 applic topical 1-2XD 12/05/24 diclofenac sodium 1 % topical gel 2 g topical TID PRN pain 12/05/24 furosemide 20 mg tablet 20 mg PO BID 12/05/24 hydrocodone 5 mg-acetaminophen 325 mg tablet 1 tab PO TID 12/05/24 insulin glargine 100 unit/mL subcutaneous solution 10 unit subcut BID 12/05/24 lidocaine 4 % topical patch (Lidocare) 2 patch topical DAILY 12/05/24 miconazole nitrate 2 % topical powder (Antifungal (miconazole)) 1 applic topical BID 12/05/24 multivitamin (Daily Multi-Vitamin tablet) 1 tab PO DAILY 12/05/24 olmesartan 40 mg tablet 40 mg PO DAILY PRN Elevated blood pressure 12/05/24 pantoprazole 40 mg tablet,delayed release 40 mg PO DAILY 12/05/24 amoxicillin 875 mg tablet 875 mg PO BID #8 tabs 12/06/24 fluvoxamine 100 mg tablet 100 mg PO BEDTIME 12/06/24 fluvoxamine 100 mg tablet 150 mg PO DAILY 12/06/24 nebivolol 10 mg tablet 5 mg (1/2 x 10 mg) PO BID PRN Hypertension #30 tabs 12/06/24 potassium chloride 20 mEq tablet,extended release(part/cryst) 20 meq PO BIDWM2 #60 tabs 12/06/24 Discharge Plan Discharge Discharge Orders: Discharge Patient (ONCE); Ordered 12/06/24 Ordered By: CASH DE JESUS Activity Restrictions/Additional Instructions: Diagnosis: Hypokalemia, UTI Diet: Diabetic Activity: as tolerated Medications: * Amoxicillin twice a day x 4 days * Potassium 20 mEq twice a day with meals Follow-up with PCP next week Instructions: Hypokalemia (GEN) Patient Disposition: TRANSFER SNF Prescriptions: New potassium chloride 20 mEq Tablet,Er Particles/Crystals 20 meq PO BIDWM2 Qty: 60 0RF amoxicillin 875 mg tablet 875 mg PO BID Qty: 8 0RF Rx Instructions: Start tomorrow Continued levothyroxine [Synthroid] 200 mcg tablet 200 mcg PO QDAY Qty: 30 5RF (DME) pen needle, diabetic [Pentips Pen Needle] 32 gauge x 5/32" needle See Rx Instructions .ROUTE .COMPLEX Qty: 100 1RF Dose Instruction: USE DIRECTED WITH LANTUS DAILY Rx Instructions: USE DIRECTED WITH LANTUS DAILY (DME) Accu-Chek Guide test strips Strip See Rx Instructions .ROUTE .COMPLEX Qty: 100 0RF Dose Instruction: USE DIRECTED Rx Instructions: USE DIRECTED promethazine 25 mg tablet 25 mg PO TID PRN (Reason: nausea and vomiting) Qty: 30 0RF ondansetron 4 mg tablet,disintegrating 4 mg PO Q8H PRN (Reason: nausea and vomiting) Qty: 30 1RF tizanidine [Zanaflex] 4 mg tablet 4 mg PO Q8H PRN (Reason: muscle spasticity) Qty: 30 0RF acetaminophen 325 mg capsule 650 mg PO Q4H PRN (Reason: pain) diclofenac sodium 1 % gel 2 g topical TID PRN (Reason: pain) Rx Instructions: apply to leg/neck topically as needed for pain pantoprazole 40 mg Tablet,Delayed Release (Dr/Ec) 40 mg PO DAILY furosemide 20 mg tablet 20 mg PO BID hydrocodone-acetaminophen 5-325 mg tablet 1 tab PO TID Rx Instructions: 1 tab BID PRN, 1 at bedtime insulin glargine 100 unit/mL solution 10 unit subcut BID lidocaine [Lidocare] 4 % adhesive patch,medicated 2 patch topical DAILY Rx Instructions: may leave on for up to 12 hrs miconazole nitrate [Antifungal (miconazole)] 2 % powder 1 applic topical BID Rx Instructions: apply to groin/under breasts BID multivitamin [Daily Multi-Vitamin] Tablet 1 tab PO DAILY Santyl 250 unit/gram ointment 1 applic topical 1-2XD Rx Instructions: apply to right medial thigh BID olmesartan 40 mg tablet 40 mg PO DAILY PRN (Reason: Elevated blood pressure) Saccharomyces boulardii [Daily Probiotic (S. boulardii)] 250 mg capsule 250 mg PO BID fluvoxamine 100 mg tablet 100 mg PO BEDTIME fluvoxamine 100 mg tablet 150 mg PO DAILY (DME) needle (disp) 22 G 22 gauge x 1 1/2" needle See Rx Instructions .ROUTE Qty: 2 0RF Rx Instructions: As directed (DME) syringe (disposable) 3 mL syringe See Rx Instructions .ROUTE Qty: 2 0RF Rx Instructions: As directed sucralfate 100 mg/mL Suspension 1 g PO ACHS2 Qty: 500 0RF Rx Instructions: Take 30 minutes before meals clonazepam 0.5 mg Tablet 2 mg PO BEDTIME Qty: 30 0RF clonazepam 0.5 mg Tablet 1 mg PO QAM Qty: 30 0RF (DME) accu-check test strips 0 .ROUTE .MEDSUPPLY levothyroxine [Synthroid] 50 mcg tablet 50 mcg PO QDAY Qty: 30 7RF Breztri Aerosphere 160-9-4.8 mcg/actuation HFA aerosol inhaler 2 inh inhalation BID Qty: 10.7 4RF Patient Comments: Not taking as of 12/05/2024 albuterol sulfate 90 mcg/actuation HFA aerosol inhaler 2 inh inhalation Q4-6H PRN (Reason: shortness of breath or wheezing) Qty: 8.5 2RF Patient Comments: Not on residential list as of 12/05/2024 Changed nebivolol 10 mg tablet 5 mg PO BID PRN (Reason: Hypertension) Qty: 30 0RF Patient Comments: not taking as of 12/05/2024 Discontinued ampicillin 500 mg capsule 1 g PO DAILY Rx Instructions: Given as a 1gm injection (IM) at residential at bedtime x 7 days starting 12/05/2024 aripiprazole [Abilify] 2 mg tablet 2 mg PO DAILY Qty: 30 0RF Patient Comments: Not on residential list as of 12/05/24 chlordiazepoxide-clidinium [Librax (with clidinium)] 5-2.5 mg capsule 1 cap PO ONCE PRN (Reason: anxiety) Patient Comments: Not taking as of 12/05/24 Did you review [place] [employer] for ALL controlled substances?: No Discussed opioids are addictive and Narcan is available by prescription or from pharmacy.: No Condition: Fair
[2024-12-06] MEDS: K-DUR PO ONE (14:50)
[2024-12-06] MEDS ORDERED: FLUVOXAMINE 100 MG PO SCH ×2 (17:00→21:00)
[2024-12-06 18:33] VITALS: BP 125/61; PULSE 60; RESP 20; TEMP 97.3
[2024-12-06] MEDS ORDERED: NON-FORMULARY MEDICATION (Fluvoxamine 100 MG) PO SCH (21:00)
== END 2024-12-06 15:58 ==
LOC: MEDSURG B 10:54 → ED 10:54 → MEDSURG B 16:34
PROVIDERS: ADMIT Hospitalist; ATTEND Nurse Practitioner Family
DX: B95.2 Enterococcus as the cause of diseases classified elsewhere; I10 Essential (primary) hypertension; Z20.822 Contact with and (suspected) exposure to COVID-19; E11.9 Type 2 diabetes mellitus without complications; Z51.81 Encounter for therapeutic drug level monitoring; Z79.899 Other long term (current) drug therapy; E87.6 Hypokalemia; Z87.440 Personal history of urinary (tract) infections; Z79.4 Long term (current) use of insulin; N39.0 Urinary tract infection, site not specified; S71.101A Unspecified open wound, right thigh, initial encounter; Z96.0 Presence of urogenital implants